=== PATIENT | female | born 1965 | race Caucasian/White ===

== ENCOUNTER 2017-11-22 22:28 | Emergency (ER) | payer SELFPAY ==
[~2017-11-22] VITALS: Ht 170.2 cm; Wt 59.0 kg
--- NOTE | 2017-11-22 22:37 | NUR ---
PT BIBA#[id number] WITH [employer], PT PER EMS "911 CALL WAS MADE BY FRIEND, PT LEFT THE GAS ON IN THE HOUSE TO ATTEMPT SUICIDE, DENIES HI" PT AOX3 RR EVEN AND UNLABORED. NO SOB NOTED. NAD NOTED NO NVD AT THIS TIME. PT PLACED ON MONITOR. DR. ROBERTO AT BEDSIDE FOR EVAL. PT AT THIS TIME DENIES SI- HI. NO ACTIVE PLAN. URINE COLLECTED. SENT TO LAB, LAB AT BED SIDE FOR BLOOD DRAW.
--- NOTE | 2017-11-22 22:52 | NUR ---
Patient discharged to home in stable condition. Written and verbal after care instructions given. Patient verbalizes understanding of instruction. ambulatory with a steady gait. instructed pt not to drive. pt verbalize understanding. pt given keys to home and [employer]haul truck.
[2017-11-22 22:54] VITALS: BP 132/88
== END 2017-11-22 22:55 | disposition home or self-care (01) ==
LOC: ER 22:31
DX: F43.9 Reaction to severe stress, unspecified (principal); Z90.89 Acquired absence of other organs; Z98.890 Other specified postprocedural states
CPT/HCPCS: A4606; Z7610